=== PATIENT | male | born 1990 | race Caucasian/White ===

== ENCOUNTER 2016-08-24 21:27 | Emergency (ER) | payer OTHER ==
--- NOTE | 2016-08-24 22:16 | ED CLINICAL REPORT ---
Clinical Report - Physicians/Mid Levels [facility] [address] [place] [address] 08/24/2016 21:29 Patient: TRI MALIN Time Seen: 22:36 Aug 24 2016. Arrived- By private vehicle. Historian- patient. HISTORY OF PRESENT ILLNESS Location of injuries- (forearm/ abd). Chief Complaint: DOG BITE. The injury occurred just prior to arrival. The animal reportedly appeared well, is up to date on immunizations and can be observed for ten days. Occurred at home. This was an "unprovoked" attack. The patient has had a skin rash. REVIEW OF SYSTEMS No numbness or enlarged lymph nodes. All systems otherwise negative, except as recorded above. PAST HISTORY Last tetanus immunization was more than 5 years ago. Problems: no known problems. Additional Surgeries: Right shoulder. Medications: None. Allergies: No Known Drug Allergy. SOCIAL HISTORY Smoker- current status unknown. Alcohol use. History of drug use: marijuana. Not an IV drug user. ADDITIONAL NOTES The nursing notes have been reviewed. PHYSICAL EXAM Vital Signs: 08/24/2016 22:08 BP: 138/93. HR: 94. RR: 18. O2 saturation: 99%. Temp: 98.4 F. Pain level now: 4/10. Appearance: Alert. Oriented X3. No backboard or C-collar. Head: Head normal on inspection. Neck: Normal inspection. Neck non-tender and non-tender. CVS: Heart sounds normal. Respiratory: Chest normal on inspection. No chest wall injury. Abdomen: Abdominal area. (2 small puncture wounds inferior to umbilicus). Back: Normal inspection. Extremities: Right forearm: 2.0 cm laceration (two small puncture wounds in addition to the lac). No puncture wound or foreign body. Pelvis stable. Neuro: Oriented X 3. PROGRESS AND PROCEDURES Laceration Repair: Time: 22:38 Aug 24 2016. Location: right forearm. Time-out completed immediately before the procedure. Length: 2.0cm. Complexity: simple (local anesthesia used and sutured). Distal neuro/vascular/tendon status normal. Tendon examined. No sensory deficit distally. Local anesthesia provided using 1% lidocaine with epi. Prepped with Betadine. Wound explored, cleansed and irrigated extensively. Subcutaneous closure: interrupted 5-0 (9 sutures, non absorb). Post-procedure: he is stable and there are no complications. Bleeding is controlled and neuro-vascular status is intact distal to the wound. Dressing applied. Tetanus immunization up-to-date. Course of Care: appreciated the emergency department with signsof a laceration sustained to the forearm from the dog. Patient withdog status and is immunized. Patient's own dog, with a spooked somewhat provoked attack. 08/24/2016 22:46 BP: 122/73. HR: 72. RR: 16. O2 saturation: 99%. Temp: 97.8 F. Pain level now: 0/10. Patient is stable. Symptoms better. Patient/family counseled. Disposition: Discharged. Condition: good. CLINICAL IMPRESSION Animal bite to the abdomen and right forearm. INSTRUCTIONS Protect wound and keep wound area clean. Apply bacitracin twice daily. Warnings: TETANUS: You were given a tetanus shot during your visit. Make a note for future reference. Prescription Medications: Augmentin 875 mg: take 1 tablet orally every 12 hours for 10 days. No refill. Substitution is permissible. Follow-up: Follow up with your doctor in three days. (Electronically signed by Collette Gimenez P.A.-C 08/24/2016 23:14)
--- NOTE | 2016-08-24 22:16 | ED NURSING NOTES ---
Clinical Report - Nurses [facility] [address] [place] [address] 08/24/2016 21:29 Patient: TRI MALIN TRIAGE Triage time 22:08. Acuity: LEVEL 4. Chief Complaint: DOG BITE. --22:11 Karlene Rojas 22:08 08/24/16. BP: 138/93. HR: 94. RR: 18. O2 saturation: 99%. Temp: 98.4 F. Pain level now: 07/13. --22: Balbir Rojas. Weight: 99.7 kg. Height/Length: 71 inches. BMI: 30.7. --22: Balbir Rojas. Medications None. --22: Balbir Rojas. Allergies No Known Drug Allergy. --22: Balbir Rojas. History Arrived by private vehicle. Historian: patient. Accompanied by family. Location of injuries: abdomen and right forearm. This occurred just prior to arrival. Circumstances: This was a "provoked" attack. The animal reportedly appeared well and is up to date on immunizations. Treatment GAMBRELER: None. SOCIAL HX: Light tobacco smoker (pipe). Alcohol use; consumes beer weekly. History of heavy drug use: marijuana. No infectious disease exposure. SELF HARM ASSESSMENT: A self harm assessment was performed. The patient answered "no" to the question "Have you recently felt down, depressed, or hopeless?", "Have you noticed less interest or pleasure in doing things?", "Do you have thoughts of harming or killing yourself?", "Are you here because you tried to hurt yourself?", "Have you ever tried to hurt yourself before today?", "Have you recently had thoughts about harming or killing others?" and "Do you have any dangerous items in your possession?". FALL RISK ASSESSMENT: Fall risk assessment completed. No fall risk identified. NUTRITIONAL RISK ASSESSMENT: The nutritional risk assessment revealed no deficiencies. FUNCTIONAL ASSESSMENT: Functional assessment: no impairments noted. LEARNING NEEDS ASSESSMENT: The learning needs assessment revealed no barriers. ABUSE ASSESSMENT: Abuse assessment: The patient was asked "Do you feel safe in your home?". SKIN INTEGRITY ASSESSMENT: Skin integrity risk assessment completed. No skin integrity risk identified. --22:11 Karlene Rojas PROBLEMS: no known problems. ADDITIONAL SURGERIES: Right shoulder. --22:10 Karlene Rojas Interventions ID band on patient. To treatment room. --22:11 Karlene Rojas PHYSICAL ASSESSMENT Ambulatory to room. GENERAL / NEURO / PSYCH: Alert. Oriented X 4. Appears in no acute distress. HEENT: Pupils equal, round and reactive to light. Head non-tender. RESPIRATORY: Respirations not labored. Breath sounds within normal limits. CVS: Normal heart rate and rhythm. Pulses within normal limits. Capillary refill less than 2 seconds. GI / : Abdomen soft and nontender. EXTREMITIES: Extremities do not exhibit normal ROM. Neuro-vascular status intact to the extremity. SKIN: Skin is warm. ( lac to right forearm). --22:12 Karlene Rojas NURSING PROGRESS NOTES Patient identifiers checked. Call light placed in reach. Bed placed in lowest position. Brakes of bed on. --22:12 Karlene Rojas Wound cleansed with sterile saline and chlorhexidine. Wound irrigated with 250 mL sterile NS using a high-pressure irrigation system; patient tolerated procedure well. --22:20 Karlene Rojas 22:08/24/2016 Augmentin (Amoxicillin-Pot Clavulanate) PO 875 mg given. Allergies verified and confirmed 5 rights. --22:25 Karlene Rojas 22:08/24/2016 TDAP IM 0.5 mL given. (Lot#: [id number], expiration date: 08/13/2018, Coat Repair Inspector: sanofi pasteur). Given in the left deltoid (split dose). Allergies verified and confirmed 5 rights. Vaccine information statement provided to the patient. --22:26 Karlene Rojas DISPOSITION / DISCHARGE Departure time: 22:53. ( dressing applied to wouhnds). No learning barriers present. Discharge instructions provided and reviewed with the patient. Reviewed medication(s) side effects, precautions, dosing and course information. Prescription(s) given to the patient. Patient verbalized understanding. Written instructions provided in [place]. No warning instructions, treatment instructions, referrals given to the patient, diet instructions or activity restrictions. No note given, follow up contact number given or stop smoking instructions. The patient was discharged by the physician research lab assistant. He was discharged home and accompanied by systems design engineer. He left the Emergency Department ambulatory and via private vehicle. Circle [place] driving. FALL RISK ASSESSMENT: Fall risk assessment completed. No fall risk identified. --22:53 Karlene Rojas 22:46 08/24/16. BP: 122/73. HR: 72. RR: 16. O2 saturation: 99%. Temp: 97.8 F. Pain level now: 0/10. --22:53 Karlene Rojas Locked/Released at 08/24/2016 22:53 by Karlene Rojas
--- NOTE | 2016-08-24 22:16 | ED NURSING NOTES ---
Clinical Report - Nurses [facility] [address] [place] [address] 08/24/2016 21:29 Patient: TRI MALIN TRIAGE Triage time 22:08. Acuity: LEVEL 4. Chief Complaint: DOG BITE. --22:11 aKrlene Rojas 22:08 08/24/16. BP: 138/93. HR: 94. RR: 18. O2 saturation: 99%. Temp: 98.4 F. Pain level now: 07/13. --22: Balbir Rojas. Weight: 99.7 kg. Height/Length: 71 inches. BMI: 30.7. --22: Balbir Rojas. Medications None. --22: Balbir Rojas. Allergies No Known Drug Allergy. --22: Balbir Rojas. History Arrived by private vehicle. Historian: patient. Accompanied by family. Location of injuries: abdomen and right forearm. This occurred just prior to arrival. Circumstances: This was a "provoked" attack. The animal reportedly appeared well and is up to date on immunizations. Treatment SCRUB TECH: None. SOCIAL HX: Light tobacco smoker (pipe). Alcohol use; consumes beer weekly. History of heavy drug use: marijuana. No infectious disease exposure. SELF HARM ASSESSMENT: A self harm assessment was performed. The patient answered "no" to the question "Have you recently felt down, depressed, or hopeless?", "Have you noticed less interest or pleasure in doing things?", "Do you have thoughts of harming or killing yourself?", "Are you here because you tried to hurt yourself?", "Have you ever tried to hurt yourself before today?", "Have you recently had thoughts about harming or killing others?" and "Do you have any dangerous items in your possession?". FALL RISK ASSESSMENT: Fall risk assessment completed. No fall risk identified. NUTRITIONAL RISK ASSESSMENT: The nutritional risk assessment revealed no deficiencies. FUNCTIONAL ASSESSMENT: Functional assessment: no impairments noted. LEARNING NEEDS ASSESSMENT: The learning needs assessment revealed no barriers. ABUSE ASSESSMENT: Abuse assessment: The patient was asked "Do you feel safe in your home?". SKIN INTEGRITY ASSESSMENT: Skin integrity risk assessment completed. No skin integrity risk identified. --22:11 Karlene Rojas PROBLEMS: no known problems. ADDITIONAL SURGERIES: Right shoulder. --22:10 Karlene Rojas Interventions ID band on patient. To treatment room. --22:11 Karlene Rojas PHYSICAL ASSESSMENT Ambulatory to room. GENERAL / NEURO / PSYCH: Alert. Oriented X 4. Appears in no acute distress. HEENT: Pupils equal, round and reactive to light. Head non-tender. RESPIRATORY: Respirations not labored. Breath sounds within normal limits. CVS: Normal heart rate and rhythm. Pulses within normal limits. Capillary refill less than 2 seconds. GI / : Abdomen soft and nontender. EXTREMITIES: Extremities do not exhibit normal ROM. Neuro-vascular status intact to the extremity. SKIN: Skin is warm. ( lac to right forearm). --22:12 Karlene Rojas NURSING PROGRESS NOTES Patient identifiers checked. Call light placed in reach. Bed placed in lowest position. Brakes of bed on. --22:12 Karlene Rojas Wound cleansed with sterile saline and chlorhexidine. Wound irrigated with 250 mL sterile NS using a high-pressure irrigation system; patient tolerated procedure well. --22:20 Karlene Rojas 22:08/24/2016 Augmentin (Amoxicillin-Pot Clavulanate) PO 875 mg given. Allergies verified and confirmed 5 rights. --22:25 Karlene Rojas 22:08/24/2016 TDAP IM 0.5 mL given. (Lot#: [id number], expiration date: 08/13/2018, Ship Laborer: sanofi pasteur). Given in the left deltoid (split dose). Allergies verified and confirmed 5 rights. Vaccine information statement provided to the patient. --22:26 Karlene oRjas DISPOSITION / DISCHARGE Departure time: 22:53. ( dressing applied to wouhnds). No learning barriers present. Discharge instructions provided and reviewed with the patient. Reviewed medication(s) side effects, precautions, dosing and course information. Prescription(s) given to the patient. Patient verbalized understanding. Written instructions provided in [place]ian. No warning instructions, treatment instructions, referrals given to the patient, diet instructions or activity restrictions. No note given, follow up contact number given or stop smoking instructions. The patient was discharged by the physician credentialing assistant. He was discharged home and accompanied by psychology physician. He left the Emergency Department ambulatory and via private vehicle. Manager Cleaning driving. FALL RISK ASSESSMENT: Fall risk assessment completed. No fall risk identified. --22:53 Karlene Rojas 22:46 08/24/16. BP: 122/73. HR: 72. RR: 16. O2 saturation: 99%. Temp: 97.8 F. Pain level now: 0/10. --22:53 Karlene Rojas Locked/Released at 08/24/2016 22:53 by Karlene Rojas
--- NOTE | 2016-08-24 22:16 | ED ORDER SUMMARY ---
..... Patient: TRI MALIN OrderSheet [facility] VisitID: [id number] [address] [place] [address] 25y, M Registration Date/Time: 08/24/2016 ORDER SHEET Weight: 99.7 kg Allergies: No Known Drug Allergy GENERAL ORDERS: MEDICATION ORDERS: Tdap IM 0.5 mL (NOW, per protocol) (22:14 08/24/2016 EKcarynlemaria teresa P.A.-C) (22:26 TBcristo R.N.) Augmentin PO 875 mg (NOW) (22:15 08/24/2016 Sarah P.A.-C) (22:25 Sreekanth R.N.) IV FLUIDS: ORDER SHEET NOTES: [Electronically signed by Jaki Aquino R.N. (22:53 08/24/2016)] [Electronically signed by Collette Gimenez P.A.-C (23:14 08/24/2016)] [Electronically locked/signed by Jaki Aquino R.N. (22:53 08/24/2016)]
--- NOTE | 2016-08-24 22:16 | ED ORDER SUMMARY ---
..... Patient: TRI MALIN OrderSheet [facility] VisitID: [id number] [address] [place] [address] 25y, M Registration Date/Time: 08/24/2016 ORDER SHEET Weight: 99.7 kg Allergies: No Known Drug Allergy GENERAL ORDERS: MEDICATION ORDERS: Tdap IM 0.5 mL (NOW, per protocol) (22:14 08/24/2016 EKcarynlemaria teresa P.A.-C) (22:26 TBcristo R.N.) Augmentin PO 875 mg (NOW) (22:15 08/24/2016 Sarah P.A.-C) (22:25 Sreekanth R.N.) IV FLUIDS: ORDER SHEET NOTES: [Electronically signed by Jaki Aquino R.N. (22:53 08/24/2016)] [Electronically signed by Collette Gimenez P.A.-C (23:14 08/24/2016)] [Electronically locked/signed by Jaki Aquino R.N. (22:53 08/24/2016)]
--- NOTE | 2016-08-24 23:14 | ED DISCHARGE INSTRUCTIONS ---
Patient: TRI MALIN General Instructions [facility] VisitID: [id number] [place] [address] 25y, M Registration Date/Time: 08/24/2016 Animal bite to the abdomen and right forearm. INSTRUCTIONS Protect wound and keep wound area clean. Apply bacitracin twice daily. Warnings: TETANUS: You were given a tetanus shot during your visit. Make a note for future reference. Prescription Medications: Augmentin 875 mg: take 1 tablet orally every 12 hours for 10 days. No refill. Substitution is permissible. Follow-up: Follow up with your doctor in three days. ADDITIONAL INFORMATION Dog Bite If a dog has bitten you and the wound is deep enough to break the skin, an infection may occur. Therefore, you should watch for the warning signs listed below. The doctor may not close the wound completely. This is to allow fluid to drain in the event of an infection. Home Care Watch the wound for signs of infection listed below. In certain types of bites, antibiotics may be prescribed. Begin taking these as soon as possible, as directed until they are all gone. Rabies Prevention If you live in an area where rabies occurs in wild animals, the rabies virus can be passed to cats and dogs. An infected animal can pass the rabies virus to you during a bite. If ahealthy-looking pet dog has bitten you, it should be kept in a secure area for the next 10 days to watch for signs of illness. If the pet girls tennis coach wont cooperate with you, contact the [facility] animal control department (or local law enforcement). If the animal becomes ill or dies [id number] days, contact your animal control department at once. The animal must be tested for rabies. If the animal stays healthy for the next 10 days, then there is no danger of rabies in the dog or you. Pets fully vaccinated against rabies (2 shots) are at very low risk for the infection. However, because human rabies is almost always fatal, any biting dog should be kept in confinement for 10 days as an extra precaution. If a stray dog bit you, contact the animal control department. They can provide information on capture, quarantine, and animal rabies testing. If you are unable to locate the animal that bit you in the next 2days, and if rabies exists in your region, you must be evaluated for the rabies vaccine series. Contact your doctor or return here promptly. All animal bites should be reported to the [facility] animal control department. If you were not given a form to fill out, you can report it yourself by calling. Follow Up with your doctor as advised. Most skin wounds heal within 10 days. However, an infection may occur even with proper treatment. Check your woundevery 6 hoursfor 2 days, then at least once a day for the next two days for the signs of infection listed below. Get Prompt Medical Attention if any of the following occur: Signs of infection: Spreading redness Increased pain or swelling Fever of 100.4F (38C) or higher, or as directed by your healthcare provider Colored fluid or pus draining from the wound Headache, confusion, strange behavior, or a seizure (signs of a rabies infection) Diphtheria Toxoid Adsorbed, Pertussis Vaccine, Acellular (Adsorbed), Tetanus Toxoid, Adsorbed Suspension for injection What is this medicine? DIPHTHERIA and TETANUS TOXOIDS; PERTUSSIS VACCINE (dif THEER ee uh and TET n us TOK soids; per TUMarco suarez SEEN) is used to prevent diphtheria, tetanus, and pertussis infections. How should I use this medicine? This vaccine is for injection into a muscle. It is given by a health plant health care technician. A copy of Vaccine Information Statements will be given before each vaccination. Read this sheet carefully each time. The sheet may change frequently. Talk to your patient portal representative regarding the use of this vaccine in children. While the DTP vaccine may be given to children ages 6 weeks to 7 years and the Tdap vaccine may be given to children at least 10 years old, precautions do apply. What side effects may I notice from receiving this medicine? Side effects that you should report to your doctor or health plant health care technician as soon as possible: allergic reactions like skin rash, itching or hives, swelling of the face, lips, or tongue breathing problems fever of 103 degrees F or more flu-like symptoms inconsolable crying infection pain, tingling, numbness in the hands or feet seizures swelling of arm or leg that was injected unusually weak or tired Side effects that usually do not require immediate medical attention (report these side effects to your doctor or health plant health care technician if they continue or are bothersome): fussy, irritable loss of appetite fever of 102 degrees F or less pain, tenderness, redness, swelling, or a 'knot' at site where injected vomiting What may interact with this medicine? immune globulin medicines that suppress your immune function like adalimumab, anakinra, infliximab medicines to treat cancer medicines that treat or prevent blood clots like warfarin, enoxaparin, and dalteparin steroid medicines like prednisone or cortisone What if I miss a dose? It is important not to miss your dose. Call your doctor or health plant health care technician if you are unable to keep an appointment. Where should I keep my medicine? This drug is given in a hospital or clinic and will not be stored at home. What should I tell my health care provider before I take this medicine? They need to know if you have any of these conditions: blood disorders like hemophilia fever or infection immune system problems neurologic disease seizures an unusual or allergic reaction to vaccines, thimerosal, latex, other medicines, foods, dyes, or preservatives or trying to get breast-feeding What should I watch for while using this medicine? See your health care provider for all shots of this vaccine as directed. To have protection from infection, you must have 3 shots of this vaccine plus boosters as needed. Tell your doctor right away if you have any serious or unusual side effects after getting this vaccine. Amoxicillin Trihydrate, Clavulanate Potassium Oral tablet What is this medicine? AMOXICILLIN; CLAVULANIC ACID (a mox i BLANCA in; DESTINY [place] ic id) is a penicillin antibiotic. It is used to treat certain kinds of bacterial infections. It will not work for colds, flu, or other viral infections. How should I use this medicine? Take this medicine by mouth with a full glass of water. Follow the directions on the prescription label. Take at the start of a meal. Do not crush or chew. If the tablet has a score line, you may cut it in half at the score line for easier swallowing. Take your medicine at regular intervals. Do not take your medicine more often than directed. Take all of your medicine as directed even if you think you are better. Do not skip doses or stop your medicine early. Talk to your patient portal representative regarding the use of this medicine in children. Special care may be needed. What side effects may I notice from receiving this medicine? Side effects that you should report to your doctor or health plant health care technician as soon as possible: allergic reactions like skin rash, itching or hives, swelling of the face, lips, or tongue breathing problems dark urine fever or chills, sore throat redness, blistering, peeling or loosening of the skin, including inside the mouth seizures trouble passing urine or change in the amount of urine unusual bleeding, bruising unusually weak or tired white patches or sores in the mouth or throat Side effects that usually do not require medical attention (report to your doctor or health plant health care technician if they continue or are bothersome): diarrhea dizziness headache nausea, vomiting stomach upset vaginal or anal irritation What may interact with this medicine? allopurinol anticoagulants control pills methotrexate probenecid What if I miss a dose? If you miss a dose, take it as soon as you can. If it is almost time for your next dose, take only that dose. Do not take double or extra doses. Where should I keep my medicine? Keep out of the reach of children. Store at room temperature below 25 degrees C (77 degrees F). Keep container tightly closed. Throw away any unused medicine after the expiration date. What should I tell my health care provider before I take this medicine? They need to know if you have any of these conditions: bowel disease, like colitis kidney disease liver disease mononucleosis an unusual or allergic reaction to amoxicillin, penicillin, cephalosporin, other antibiotics, clavulanic acid, other medicines, foods, dyes, or preservatives or trying to get breast-feeding What should I watch for while using this medicine? Tell your doctor or health plant health care technician if your symptoms do not improve. Do not treat diarrhea with over the counter products. Contact your doctor if you have diarrhea that lasts more than 2 days or if it is severe and watery. If you have diabetes, you may get a false-positive result for sugar in your urine. Check with your doctor or health plant health care technician. control pills may not work properly while you are taking this medicine. Talk to your doctor about using an extra method of control. You have been given the following additional information: Dog Bite Diphtheria Toxoid Adsorbed, Pertussis Vaccine, Acellular (Adsorbed), Tetanus Toxoid, Adsorbed Suspension for injection Amoxicillin Trihydrate, Clavulanate Potassium Oral tablet (Electronically signed by Collette Gimenez P.A.-C 08/24/2016 23:14)
--- NOTE | 2016-08-24 23:14 | ED DISCHARGE INSTRUCTIONS ---
Patient: TRI MALIN General Instructions [facility] VisitID: [id number] [place] [address] 25y, M Registration Date/Time: 08/24/2016 Animal bite to the abdomen and right forearm. INSTRUCTIONS Protect wound and keep wound area clean. Apply bacitracin twice daily. Warnings: TETANUS: You were given a tetanus shot during your visit. Make a note for future reference. Prescription Medications: Augmentin 875 mg: take 1 tablet orally every 12 hours for 10 days. No refill. Substitution is permissible. Follow-up: Follow up with your doctor in three days. ADDITIONAL INFORMATION Dog Bite If a dog has bitten you and the wound is deep enough to break the skin, an infection may occur. Therefore, you should watch for the warning signs listed below. The doctor may not close the wound completely. This is to allow fluid to drain in the event of an infection. Home Care Watch the wound for signs of infection listed below. In certain types of bites, antibiotics may be prescribed. Begin taking these as soon as possible, as directed until they are all gone. Rabies Prevention If you live in an area where rabies occurs in wild animals, the rabies virus can be passed to cats and dogs. An infected animal can pass the rabies virus to you during a bite. If ahealthy-looking pet dog has bitten you, it should be kept in a secure area for the next 10 days to watch for signs of illness. If the pet registration clerk wont cooperate with you, contact the [facility] animal control department (or local law enforcement). If the animal becomes ill or dies [id number] days, contact your animal control department at once. The animal must be tested for rabies. If the animal stays healthy for the next 10 days, then there is no danger of rabies in the dog or you. Pets fully vaccinated against rabies (2 shots) are at very low risk for the infection. However, because human rabies is almost always fatal, any biting dog should be kept in confinement for 10 days as an extra precaution. If a stray dog bit you, contact the animal control department. They can provide information on capture, quarantine, and animal rabies testing. If you are unable to locate the animal that bit you in the next 2days, and if rabies exists in your region, you must be evaluated for the rabies vaccine series. Contact your doctor or return here promptly. All animal bites should be reported to the [facility] animal control department. If you were not given a form to fill out, you can report it yourself by calling. Follow Up with your doctor as advised. Most skin wounds heal within 10 days. However, an infection may occur even with proper treatment. Check your woundevery 6 hoursfor 2 days, then at least once a day for the next two days for the signs of infection listed below. Get Prompt Medical Attention if any of the following occur: Signs of infection: Spreading redness Increased pain or swelling Fever of 100.4F (38C) or higher, or as directed by your healthcare provider Colored fluid or pus draining from the wound Headache, confusion, strange behavior, or a seizure (signs of a rabies infection) Diphtheria Toxoid Adsorbed, Pertussis Vaccine, Acellular (Adsorbed), Tetanus Toxoid, Adsorbed Suspension for injection What is this medicine? DIPHTHERIA and TETANUS TOXOIDS; PERTUSSIS VACCINE (dif THEER ee uh and TET n us TOK soids; per TUMarco suarez SEEN) is used to prevent diphtheria, tetanus, and pertussis infections. How should I use this medicine? This vaccine is for injection into a muscle. It is given by a health home care physical therapist. A copy of Vaccine Information Statements will be given before each vaccination. Read this sheet carefully each time. The sheet may change frequently. Talk to your soda jerker regarding the use of this vaccine in children. While the DTP vaccine may be given to children ages 6 weeks to 7 years and the Tdap vaccine may be given to children at least 10 years old, precautions do apply. What side effects may I notice from receiving this medicine? Side effects that you should report to your doctor or health home care physical therapist as soon as possible: allergic reactions like skin rash, itching or hives, swelling of the face, lips, or tongue breathing problems fever of 103 degrees F or more flu-like symptoms inconsolable crying infection pain, tingling, numbness in the hands or feet seizures swelling of arm or leg that was injected unusually weak or tired Side effects that usually do not require immediate medical attention (report these side effects to your doctor or health home care physical therapist if they continue or are bothersome): fussy, irritable loss of appetite fever of 102 degrees F or less pain, tenderness, redness, swelling, or a 'knot' at site where injected vomiting What may interact with this medicine? immune globulin medicines that suppress your immune function like adalimumab, anakinra, infliximab medicines to treat cancer medicines that treat or prevent blood clots like warfarin, enoxaparin, and dalteparin steroid medicines like prednisone or cortisone What if I miss a dose? It is important not to miss your dose. Call your doctor or health home care physical therapist if you are unable to keep an appointment. Where should I keep my medicine? This drug is given in a hospital or clinic and will not be stored at home. What should I tell my health care provider before I take this medicine? They need to know if you have any of these conditions: blood disorders like hemophilia fever or infection immune system problems neurologic disease seizures an unusual or allergic reaction to vaccines, thimerosal, latex, other medicines, foods, dyes, or preservatives or trying to get breast-feeding What should I watch for while using this medicine? See your health care provider for all shots of this vaccine as directed. To have protection from infection, you must have 3 shots of this vaccine plus boosters as needed. Tell your doctor right away if you have any serious or unusual side effects after getting this vaccine. Amoxicillin Trihydrate, Clavulanate Potassium Oral tablet What is this medicine? AMOXICILLIN; CLAVULANIC ACID (a mox i BLANCA in; DESTINY [place] ic id) is a penicillin antibiotic. It is used to treat certain kinds of bacterial infections. It will not work for colds, flu, or other viral infections. How should I use this medicine? Take this medicine by mouth with a full glass of water. Follow the directions on the prescription label. Take at the start of a meal. Do not crush or chew. If the tablet has a score line, you may cut it in half at the score line for easier swallowing. Take your medicine at regular intervals. Do not take your medicine more often than directed. Take all of your medicine as directed even if you think you are better. Do not skip doses or stop your medicine early. Talk to your soda jerker regarding the use of this medicine in children. Special care may be needed. What side effects may I notice from receiving this medicine? Side effects that you should report to your doctor or health home care physical therapist as soon as possible: allergic reactions like skin rash, itching or hives, swelling of the face, lips, or tongue breathing problems dark urine fever or chills, sore throat redness, blistering, peeling or loosening of the skin, including inside the mouth seizures trouble passing urine or change in the amount of urine unusual bleeding, bruising unusually weak or tired white patches or sores in the mouth or throat Side effects that usually do not require medical attention (report to your doctor or health home care physical therapist if they continue or are bothersome): diarrhea dizziness headache nausea, vomiting stomach upset vaginal or anal irritation What may interact with this medicine? allopurinol anticoagulants control pills methotrexate probenecid What if I miss a dose? If you miss a dose, take it as soon as you can. If it is almost time for your next dose, take only that dose. Do not take double or extra doses. Where should I keep my medicine? Keep out of the reach of children. Store at room temperature below 25 degrees C (77 degrees F). Keep container tightly closed. Throw away any unused medicine after the expiration date. What should I tell my health care provider before I take this medicine? They need to know if you have any of these conditions: bowel disease, like colitis kidney disease liver disease mononucleosis an unusual or allergic reaction to amoxicillin, penicillin, cephalosporin, other antibiotics, clavulanic acid, other medicines, foods, dyes, or preservatives or trying to get breast-feeding What should I watch for while using this medicine? Tell your doctor or health home care physical therapist if your symptoms do not improve. Do not treat diarrhea with over the counter products. Contact your doctor if you have diarrhea that lasts more than 2 days or if it is severe and watery. If you have diabetes, you may get a false-positive result for sugar in your urine. Check with your doctor or health home care physical therapist. control pills may not work properly while you are taking this medicine. Talk to your doctor about using an extra method of control. You have been given the following additional information: Dog Bite Diphtheria Toxoid Adsorbed, Pertussis Vaccine, Acellular (Adsorbed), Tetanus Toxoid, Adsorbed Suspension for injection Amoxicillin Trihydrate, Clavulanate Potassium Oral tablet (Electronically signed by Collette Gimenez P.A.-C 08/24/2016 23:14)
--- NOTE | 2016-08-24 23:14 | ED MED RECONCILIATION SUMMARY ---
Patient: TRI MALIN Medication Reconciliation Report [facility] VisitID: [id number] [address] [place] [address] 25y, M Registration Date/Time: 08/24/2016 Weight: 99.7 kg Height/Length: 71 in. BMI: 30.7 ALLERGIES: No Known Drug Allergy The patient's Home Medications are listed below: NONE. The source(s) of the original Home Medication information: Not obtained. The following Medications were given to the patient in the Emergency Department: Augmentin [PO] PO 875 mg, administered: 08/24/2016 10:25:00 PM TDAP [IM] IM 0.5 mL, administered: 08/24/2016 10:26:00 PM The following Medications were prescribed to the patient: Augmentin 875 mg: take 1 tablet orally every 12 hours for 10 days. No refill. Substitution is permissible. -- Collette Gimenez, PAndriaARyanC
--- NOTE | 2016-08-24 23:14 | ED MAR SUMMARY ---
..... Medication Administration Record [facility] [address] [place] [address] Patient: TRI MALIN Visit ID: [id number] 25y, M Weight: 99.7 kg Height/Length: 71 in BMI: 30.7 ALLERGIES: No Known Drug Allergy Given 22:25 08/24/2016 Crystal, R.N. Medication Administered: AUGMENTIN [PO] (AMOXICILLIN-POT CLAVULANATE), Dose: 875 mg PO. Medication Ordered: Augmentin PO 875 mg (NOW). Given 22:26 08/24/2016 Crystal, R.N. Medication Administered: TDAP [IM], Dose: 0.5 mL IM. Medication Ordered: Tdap IM 0.5 mL (NOW, per protocol).
--- NOTE | 2016-08-24 23:14 | ED MED RECONCILIATION SUMMARY ---
Patient: TRI MALIN Medication Reconciliation Report [facility] VisitID: [id number] [address] [place] [address] 25y, M Registration Date/Time: 08/24/2016 Weight: 99.7 kg Height/Length: 71 in. BMI: 30.7 ALLERGIES: No Known Drug Allergy The patient's Home Medications are listed below: NONE. The source(s) of the original Home Medication information: Not obtained. The following Medications were given to the patient in the Emergency Department: Augmentin [PO] PO 875 mg, administered: 08/24/2016 10:25:00 PM TDAP [IM] IM 0.5 mL, administered: 08/24/2016 10:26:00 PM The following Medications were prescribed to the patient: Augmentin 875 mg: take 1 tablet orally every 12 hours for 10 days. No refill. Substitution is permissible. -- Collette Gimenez, PAndriaARyanC
--- NOTE | 2016-08-24 23:14 | ED MAR SUMMARY ---
..... Medication Administration Record [facility] [address] [place] [address] Patient: TRI MALIN Visit ID: [id number] 25y, M Weight: 99.7 kg Height/Length: 71 in BMI: 30.7 ALLERGIES: No Known Drug Allergy Given 22:25 08/24/2016 Crystal, R.N. Medication Administered: AUGMENTIN [PO] (AMOXICILLIN-POT CLAVULANATE), Dose: 875 mg PO. Medication Ordered: Augmentin PO 875 mg (NOW). Given 22:26 08/24/2016 Crystal, R.N. Medication Administered: TDAP [IM], Dose: 0.5 mL IM. Medication Ordered: Tdap IM 0.5 mL (NOW, per protocol).
== END 2016-08-24 22:48 | disposition home or self-care (01) ==
LOC: ED SRH 21:27
DX: S31.155A Open bite of abdominal wall, periumbilic region without penetration into peritoneal cavity, initial encounter (principal); S51.851A Open bite of right forearm, initial encounter; W54.0XXA Bitten by dog, initial encounter; Y93.9 Activity, unspecified; Y99.9 Unspecified external cause status; Y92.009 Unspecified place in unspecified non-institutional (private) residence as the place of occurrence of the external cause; Z23 Encounter for immunization